=== PATIENT | female | born 1945 | race Caucasian/White ===

== ENCOUNTER 2017-03-23 07:57 | Outpatient (POV) | payer MEDICARE, BC, SELFPAY | END 2017-03-23 11:26 | disposition home or self-care (01) | PROVIDERS: Visit Provider Podiatrist | DX: S93.622A Sprain of tarsometatarsal ligament of left foot, initial encounter (principal) | CPT/HCPCS: 99202; 73630 ==

== ENCOUNTER → 2017-08-16 08:47 | Outpatient (CLI) | payer MEDICARE, BC, SELFPAY ==
--- NOTE | 2017-08-16 09:11 | XR_ITS ---
DEXA SCAN.-BONE DENSITY STUDY HIPS AND LUMBAR SPINE HISTORY:. Bilateral ovaries removed. female takes calcium and vitamin D height loss. TECHNIQUE: DEXA scan hip and lumbar spine The most complete data summary and color graphic presentation of the today's ( and any prior ) DEXA findings are available in PACS. Definition and treatment guidelines included. COMPARISON: January 2012 LUMBAR SPINE: Overall Low-normal density overall.... L2 vertebral body demonstrates the lowest T score -1.7 with BMD1.00 g/cm sq Overall mean lumbar L1-L4 T score -0.9 with BMD1.074 g/cm sq . On 2011 prior DEXA the mean T score -0.9 with BMD was1.07g/cm sq Thus when comparing today's study to the prior exam there's been a 0.4% % increasing mean bone density at the lumbar spine. HIPS: Femoral neck density is best predictor of hip fracture risk . Both right and left femoral neck demonstrate demonstrates T score -2.9 with lower BMD at right neck = BMD0.632 g/cm sq . Averaging all regions of the hip yield today's HIP MEAN T SCORE = - -2.5 with BMD0.689 g/cm sq . 2011 hip overall T score -2.2 with mean BMD0.727 g/cm sq Thus this reflects a 5.2% decrease in overall mean bone density at the hips in the interval. IMPRESSION 1. LUMBAR SPINE: Overall L1-L4 T score = -0.9 reflecting low normal bone density Lowest bone density encountered at L2 vertebra where T score -1.7 2. HIPS: Overall osteoporosis with overall T score -2.5 Osteoporosis of both right and left femoral neck, with T score = -2.9 WHO criteria for post-menopausal, Women: Normal: T-score at or above -1 SD Osteopenia: T-score between -1 and -2.5 SD Osteoporosis: T-score at or below -2.5 SD
== END ==
PROVIDERS: PCP Family Medicine; Visit Provider Family Medicine
DX: M81.0 Age-related osteoporosis without current pathological fracture (principal)
CPT/HCPCS: 77080

== ENCOUNTER → 2018-08-16 10:18 | Outpatient (CLI) | payer MEDICARE, BC, SELFPAY ==
--- NOTE | 2018-08-16 10:22 | MM_ITS ---
MM Dig screening mamm BI w/CAD ORDERING PHYSICIAN : Elizabeth Aldrich MD PATIENT AGE: 72 years GENDER: Female COMPARISON: bilateral digital mammogram March 2011 and January 2010 ,[facility] Spot views right breast April 2012 . HISTORY. Routine screening. No hormones. No new complaints Family history. Mother with breast cancer inher 50s TECHNIQUE: Standard CC and MLO images were obtained. R2 CAD reviewed. FINDINGS: Minimal-moderate residual fibroglandular elements in the retroareolar region , anterior breast bilaterally With likely some mild ductal prominence retroareolar region bilaterally.Otherwise diffuse fatty replacement at the deeper breast. But no new areas of concern in either breast. No dominant nor suspicious mass nor suspicious calcification. Parenchymal similar pattern today versus previous studies with no new areas of significant concern. . Bilateral follow-up in one year recommended . IMPRESSION: Stable bilateral mammogram. No new areas of significant concern.. Bilateral follow-up in one year. BI-RADS Category: 1 Negative RECOMMENDED FOLLOW-UP: 1YR 1 YEAR FOLLOW-UP (A letter has been sent to the patient regarding results of the study.)
== END ==
PROVIDERS: PCP Family Medicine; Visit Provider Family Medicine
DX: Z12.31 Encounter for screening mammogram for malignant neoplasm of breast (principal)
CPT/HCPCS: 77067

== ENCOUNTER → 2019-06-07 12:19 | Outpatient (CLI) | payer MEDICARE, BC, SELFPAY ==
--- NOTE | 2019-06-07 12:25 | XR_ITS ---
PROCEDURE: XR SHOULDER LT MIN 2V CLINICAL INDICATION: RUPTURE LT BICEP TENDON COMPARISON: No exams were available for comparison FINDINGS: There is demineralization. No acute fracture or dislocation is apparent. Mild AC joint arthropathy is noted and some bony hypertrophy is seen projecting off the superior aspect of the acromion. Mild glenohumeral joint arthropathy is noted. IMPRESSION: Mild degenerative findings as described with no acute bone pathology. Dictated by: Rodolfo Bear 06/07/2019 16:34 Electronically signed by Rodolfo Bear in [place] 06/07/2019 16:34
== END ==
PROVIDERS: PCP Family Medicine; Visit Provider Family Medicine
DX: S46.212A Strain of muscle, fascia and tendon of other parts of biceps, left arm, initial encounter (principal)
CPT/HCPCS: 73030

== ENCOUNTER → 2019-10-16 12:57 | Outpatient (CLI) | payer MEDICARE, BC, SELFPAY ==
--- NOTE | 2019-10-16 13:27 | CT_ITS ---
PROCEDURE: CT HEAD/BRAIN WO/W CON CLINICAL INDICATION: MEMORY LOSS Sudden onset memory loss COMPARISON: No exams were available for comparison TECHNIQUE: IV Contrast: 100ML OPITRAY 320 Axial images obtained. All CT scans at the facility use one or more dose reduction, viz: automated exposure control, ma/kV adjustment per patient size (including targeted exams where dose is matched to indication, i.e. head), or iterative reconstruction technique. FINDINGS: No midline shift, mass effect, intracranial hemorrhage, hydrocephalus, or extra-axial fluid collection is evident. There is generalized atrophy with hypoattenuation of the periventricular white matter consistent with microangiopathic changes.. No enhancing lesions are evident. The calvarium has an unremarkable appearance. No mastoid effusion. There is opacification of the left maxillary sinus with thickening the becerra of the maxillary sinus consistent with chronic sinus inflammatory change. IMPRESSION: 1. No acute intracranial findings. 2. Atrophy with chronic periventricular ischemic gliotic change. 3. Chronic left maxillary sinusitis Dictated by: Saleem Helm MD 10/16/2019 14:38 Electronically signed by Saleem Helm MD in [place] 10/16/2019 14:38
--- NOTE | 2019-10-16 13:27 | CT_ITS ---
PROCEDURE: CT KNEE LT WO CON CLINICAL HISTORY: CYST OF LT KNEE Posterior left knee pain, twisting injury COMPARISON: No exams were available for comparison TECHNIQUE: Axial images obtained with sagittal and coronal reformats. All CT scans at the facility use one or more dose reduction, viz: automated exposure control, ma/kV adjustment per patient size (including targeted exams where dose is matched to indication, i.e. head), or iterative reconstruction technique. FINDINGS: There are mild tricompartmental osteoarthritic changes. No acute fracture or dislocation is evident. There is mild diffuse osteopenia. There is a small subchondral cyst measuring 7 mm in the posterior aspect of the proximal tibia medially. There is a small knee joint effusion. There is a Hastings's cyst measuring approximately 5.5 cm. There is generalized vascular calcification. The cruciate ligaments and menisci are not well delineated with CT. IMPRESSION: Mild osteoarthritic changes with subchondral cyst of the proximal tibia medially and posteriorly and with knee joint effusion with a 5.5 cm Hastings's cyst Dictated by: Saleem Helm MD 10/17/2019 13:34 Electronically signed by Saleem Helm MD in [place] 10/17/2019 13:34
[2019-10-16 13:35] LABS: Blood Urea Nitrogen 21 mg/dl (7-17); Estimated Glomerular Filt Rate 44 ml/min (>60); GFR (African American) 53 ML/MIN (>60)
== END ==
PROVIDERS: PCP Family Medicine; Visit Provider Family Medicine
DX: R41.3 Other amnesia (principal); M71.22 Synovial cyst of popliteal space [Baker], left knee
CPT/HCPCS: 36415; 70470; 73700; 82565; 84520; Q9967

== ENCOUNTER → 2019-11-30 08:27 | Outpatient (CLI) | payer MEDICARE, BC, SELFPAY ==
--- NOTE | 2019-11-30 08:32 | MM_ITS ---
PROCEDURE: MM DIG SCREENING MAMM BI W/CAD Digital Breast Tomosynthesis Included CLINICAL INDICATION: FIBROCYSTIC BREAST DISEASE, USPECIFIED LATERALITY There is a history of breast cancer patient's mother diagnosed in her 50s. COMPARISON: MG [id number] DIG MAMM-DX UNIL RT W/ADD VIEW from 04/26/2012 MG DMSB DIG MAMM-SCREEN KALEY from 12/07/2013 MG [facility] MM Dig screening mamm BI w/CAD from 08/16/2018 TECHNIQUE: Standard CC and MLO images and 3D Tomosynthesis was obtained. R2 CAD reviewed. FINDINGS: Scattered fibroglandular densities are seen in both breast. Again glandular elements are slightly more prominent in the subareolar regions as noted previously. There is minimal arterial calcification right breast. There is a benign-appearing calcification right breast. There is no suspicious lesion in either breast and no suspicious microcalcifications. IMPRESSION: Fibrofatty parenchyma with no suspicious lesions seen BI-RAD Category: 2 Benign Finding(s) FOLLOW-UP: 1YR 1 Year Follow-up (A letter has been sent to the patient regarding results of the study.) Dictated Dr. Ortiz Arroyo MD 12/01/2019 09:43 Dr. Ortiz Caceres MD in [place] 12/01/2019 09:43
--- NOTE | 2019-11-30 08:32 | XR_ITS ---
PROCEDURE: XR DEXA AXIAL SKELETON CLINICAL HISTORY: OSTEOPOROSIS COMPARISON: CR DEXAAX XR DEXA axial skeleton from 08/16/2017 FINDINGS: The right hip BMD is 0.565 with a t-score of -2.6. The left hip BMD is 0.557 with a t-score of -3.2. The lumbar spine BMD is 1.021 with a t-score of -0.2. Previously the lowest bone density was in the femoral necks with T-score of -2.9 IMPRESSION: This patient is considered osteoporotic according to the World Health Organization criteria. Fracture risk is high. Treatment is advised. Based on these results of follow-up exam is recommended in 1 year Dictated by: Saleem Helm MD 12/01/2019 10:13 Saleem Helm MD in [place] 12/01/2019 10:13
== END ==
PROVIDERS: PCP Family Medicine; Visit Provider Family Medicine
DX: Z12.31 Encounter for screening mammogram for malignant neoplasm of breast (principal); M81.0 Age-related osteoporosis without current pathological fracture
CPT/HCPCS: 77063; 77067; 77080